=== PATIENT | male | born 1995 | race Caucasian/White ===

== ENCOUNTER 2023-04-04 21:04 | Emergency (ER) | payer SELFPAY ==
[~2023-04-04] VITALS: Ht 165.1 cm; Wt 71.0 kg
[2023-04-04 21:19] VITALS: TEMP 98.9; O2SAT 97
[2023-04-05] MEDS ORDERED: IBUPROFEN 400MG TABLET PO ONE (00:45)
[2023-04-05] MEDS ORDERED: IBUP-2028 MT (02:07)
[2023-04-05 02:41] VITALS: BP 129/85; PULSE 99; RESP 18
== END 2023-04-05 02:16 | disposition home or self-care (01) ==
LOC: ER 21:04
DX: S62.307A Unspecified fracture of fifth metacarpal bone, left hand, initial encounter for closed fracture (principal); V89.2XXA Person injured in unspecified motor-vehicle accident, traffic, initial encounter; Y93.89 Activity, other specified; Y92.89 Other specified places as the place of occurrence of the external cause; Y99.8 Other external cause status
CPT/HCPCS: 29125; 73030; 73130; 99284